=== PATIENT | male | born 1990 | race Two or more races ===

== ENCOUNTER 2022-10-26 12:23 | Emergency (ER) | payer MEDICAID ==
[~2022-10-26] VITALS: Ht 170.2 cm; Wt 95.0 kg
[2022-10-26 12:49] VITALS: BP 113/72
[2022-10-26] MEDS ORDERED: HYDROcodone-ACET 10/325MG TAB PO ONE (16:15)
[2022-10-26] MEDS ORDERED: IBUP800T27 PO (16:27)
[2022-10-26] MEDS ORDERED: BACL10TA PO (16:49)
[2022-10-27] MEDS ORDERED: HYDR-4902 PO (20:04)
== END 2022-10-26 16:52 | disposition home or self-care (01) ==
LOC: ER 12:26
DX: M43.17 Spondylolisthesis, lumbosacral region (principal)
CPT/HCPCS: 72131

== ENCOUNTER 2022-10-27 17:30 | Emergency (ER) | payer MEDICAID ==
[~2022-10-27] VITALS: Ht 170.2 cm; Wt 80.0 kg
[~2022-10-27 17:30] MED LIST: BACL10TA PO; IBUP800T27 PO
[2022-10-27] MEDS ORDERED: HYDROmorphone HCL 2 MG/ML VL/or syr IV ONE (18:45)
[2022-10-27] MEDS ORDERED: ONDANSETRON HCL 4 MG/2 ML VIAL IV ONE (18:45)
[2022-10-27] MEDS ORDERED: CYCLOBENZAPRINE HCL 10 MG TAB PO ONE (19:45)
[2022-10-27 20:00] VITALS: BP 142/88
[2022-10-27] MEDS ORDERED: HYDR-4902 PO (20:04)
== END 2022-10-27 19:39 | disposition home or self-care (01) ==
LOC: ER 17:30 → EDBD 17:30 → EDUNIT# 17:30 → ER 19:39
DX: M54.16 Radiculopathy, lumbar region (principal)
CPT/HCPCS: 96374; 96375; 99285; J1170; J2405